=== PATIENT | male | born 1975 ===

== ENCOUNTER → 2021-04-13 11:15 | Outpatient (ROUT) | payer OTHER, SELFPAY ==
[2021-04-13 12:35] LABS: COVID19 -Nasal RAPID POSITIVE (Negative)
== END ==
PROVIDERS: Visit Provider Family Medicine
DX: U07.1 COVID-19 (principal)
CPT/HCPCS: 87635

== ENCOUNTER → 2022-07-25 12:07 | Outpatient (ROUT) | payer OTHER, SELFPAY ==
[2022-07-25 12:38] LABS: COVID19 -Nasal RAPID Negative (Negative)
== END ==
PROVIDERS: Visit Provider Family Medicine
DX: R05.9 Cough, unspecified (principal); R50.9 Fever, unspecified; R51.9 Headache, unspecified; R52 Pain, unspecified; Z20.822 Contact with and (suspected) exposure to COVID-19
CPT/HCPCS: 87635